=== PATIENT | male | born 1990 | race Asian ===

== ENCOUNTER 2019-02-08 09:13 | Observation (INO) | payer OTHER ==
[2019-02-08] MEDS ORDERED: HEPARIN 1000 UNITS/ML 10 ML INJ (10:53)
[2019-02-08] MEDS ORDERED: FENTAnyl 50 MCG/ML VIAL (10:53)
[2019-02-08] MEDS ORDERED: MEPERIDINE 25 MG INJ IV (11:30)
[2019-02-08] MEDS ORDERED: METOCLOPRAMIDE 10 MG INJ IV (11:30)
[2019-02-08] MEDS ORDERED: MIDAZOLAM 1 MG/ML 2 ML INJ IV (11:30)
[2019-02-08] MEDS ORDERED: HYDROmorphONE 1 MG/5 ML IV SYRINGE IV ×3 (11:30)
[2019-02-08] MEDS ORDERED: OXYCODONE/ACETAMINOPHEN (5/325) TAB PO ×2 (11:30)
[2019-02-08] MEDS ORDERED: ONDANSETRON 4 MG INJ IV ×2 (11:30→15:00)
[2019-02-08] MEDS ORDERED: FENTAnyl 50 MCG/ML VIAL IV ×3 (11:30)
[2019-02-08] MEDS ORDERED: DIPHENHYDRAMINE 50 MG INJ IV ×2 (11:30→15:00)
[2019-02-08] MEDS: BUPIVACAINE 0.25% (MPF) 30 ML INJ (12:53)
[2019-02-08] MEDS: BUPIVACAINE 0.5%/EPI (SDV) 30 ML INJ (12:58)
[2019-02-08] MEDS: CA CHLORIDE 10% 10 ML SYRINGE (12:58)
[2019-02-08] MEDS: POLYMYXIN/BACITRACIN 1L IRRIG (12:59)
[2019-02-08] MEDS: THROMBIN 5000 UNIT VIAL (12:59)
[2019-02-08] MEDS ORDERED: ACETAMINOPHEN 325 MG TAB PO (15:00)
[2019-02-08] MEDS ORDERED: HYDROmorphONE 0.5 MG/0.5 ML SYG IV ×2 (15:00→17:00)
[2019-02-08] MEDS ORDERED: PROCHLORPERAZINE 10 MG TAB PO (15:00)
[2019-02-08] MEDS ORDERED: DIPHENHYDRAMINE 25 MG CAP PO (15:00)
[2019-02-08] MEDS ORDERED: NALOXONE (0.4 MG/ML) INJ IV (15:00)
[2019-02-08] MEDS ORDERED: CEPASTAT LOZENGE MT (15:00)
[2019-02-08] MEDS: NALOXONE (0.4 MG/ML) INJ IV (15:44)
[2019-02-08] MEDS: CEFAZOLIN 1 GM/50 ML (PMX) 50 ML IVPB (15:51)
[2019-02-08] MEDS: LACTATED RINGER'S 1,000 ML IV ×2 (17:24→18:49)
[2019-02-09] MEDS: HYDROCODONE/APAP (5/325) TAB PO ×2 (06:07→11:40)
[2019-02-09] MEDS: CYCLOBENZAPRINE 10 MG TAB PO (08:50)
[2019-02-09] MEDS: DEXAMETHASONE 10 MG/ML 1 ML INJ IV (08:50)
== END 2019-02-09 18:00 | disposition home or self-care (01) ==
LOC: SDS 09:13 → MS1 18:16 → SDS 16:45 → MS1 16:45
DX: M51.16 Intervertebral disc disorders with radiculopathy, lumbar region (principal); M48.061 Spinal stenosis, lumbar region without neurogenic claudication; M21.371 Foot drop, right foot
CPT/HCPCS: 63047; 72100; 86850; 86900; 86901; 86999; 88304; 97110; 97116; 97161; 97530